=== PATIENT | female | born 1970 | race Caucasian/White ===

== ENCOUNTER 2019-10-28 10:44 | Emergency (ER) | payer OTHER, SELFPAY ==
[2019-10-28 11:00] VITALS: BP 148/90; PULSE 95; RESP 16; TEMP 36.7; O2SAT 98
--- NOTE | 2019-10-28 11:01 | ED.GENADULT ---
HPI - General Adult General Chief complaint: Extremity Injury, Lower Stated complaint: Left hip pain Time Seen by Provider: 10/28/19 11:01 History of Present Illness HPI narrative: 49-year-old female presents with complaints of left lateral hip pain for the past 2 weeks. Ibuprofen every 8 hours for the past 2 days, last this morning at 00:00 with little relief. Taylor says she is unable to take Tylenol due to Fatty liver. No recent injuries. Denies radiation of pain. No numbness or tingling or bleeding. No swelling. No loss of mobility. Exacerbating factor consist of bearing weight to leg. Denies recent travel or long car rides. No history of DVT or PE. Denies fever, chills, headaches, weakness, fatigue, or myalgia. Denies chest pain or dyspnea. Denies cough, rhinorrhea, congestion, sore throat, nausea, vomiting, abdominal pain, and diarrhea. Tolerating po intake well. Denies recent traveling. Denies concerns for COVID-19 or exposures been home since [id number] order except for essential household needs, working, and return home. Some parts of this dictation were generated by voice recognition software and may contain typographical and/or grammatical inaccuracies. Related Data Home Medications Medication Instructions Recorded Confirmed albuterol sulfate INHALATION 07/03/19 metformin 1,000 mg PO BID 07/03/19 07/03/19 Allergies Allergy/AdvReac Type Severity Reaction Status Date / Time hydromorphone Allergy Intermediate Hallucinati Verified 07/03/19 18:06 ng morphine Allergy Intermediate Other Verified 07/03/19 18:06 NSAIDS (Non-Steroidal AdvReac Intermediate Other Verified 07/03/19 18:06 Anti-Inflamma Review of Systems Review of Systems: Narrative: CONSTITUTIONAL: Denies fever, chills, sweats. EYES: Denies visual changes, redness, discharge. ENT: Denies rhinorrhea, congestion, sore throat, otalgia. CARDIOVASCULAR: Denies chest pain, palpitations, edema. RESPIRATORY: Denies dyspnea, wheezing, cough. GASTROINTESTINAL: Denies abdominal pain, nausea, vomiting, diarrhea. GENITOURINARY: Denies dysuria, hematuria, abnormal discharge SKIN: Denies rash or itching. MUSCULOSKELETAL: Denies acute back pain or myalgia. Complains of Left lateral hip pain. NEUROLOGIC: Denies numbness, or focal weakness. PSYCHIATRIC: Denies anxiety or depression. All systems reviewed and are unremarkable except as noted in HPI and below. [facility] Past Medical History Medical History (Updated 10/28/19 @ 11:46 by ESTRELLITA Oh) Asthma delivery delivered Diabetes Hypercholesteremia Hypertension Obese Surgical History Surgical History (Updated 10/28/19 @ 11:24 by ESTRELLITA Oh) H/O section X1 History of cholecystectomy History of hysterectomy Family History Family History (Updated 10/28/19 @ 11:25 by ESTRELLITA Oh) Father Diabetes mellitus Mother , Unknown type per [facility] Social History Social History (Updated 10/28/19 @ 11:25 by ESTRELLITA Oh) Smoking status: Never smoker Second hand tobacco smoke exposure: No Alcohol intake: never Substance use: never Living arrangements: with family Occupation/Education: occupation Gender identity (if verbalized by the patient): Female Comments At time of signature, agree with nurse past medical, surgical, social, and family history. There is no relevant family history pertinent to the presenting complaint. Exam Narrative: Exam Narrative: GENERAL: This is a well-nourished, well-developed patient, in no apparent distress. Talks in full sentences without deficits and ambulates with LT antalgic gait without dyspnea. HEAD: normocephalic, atraumatic. EYES: PERRL. Sclera clear/white. Vision is grossly intact. CARDIOVASCULAR: Regular rate and rhythm without murmurs, gallops, or rubs. RESPIRATORY: Clear to auscultation. Breath sounds equal bilaterally. No wheezes, rales, or
[2019-10-28] MEDS: KETOROLAC (*BKC) 60 MG/2 ML VIAL IM (11:23)
== END 2019-10-28 11:53 | disposition home or self-care (01) ==
PROVIDERS: Emergency Provider Nurse Practitioner Family; PCP Family Medicine
DX: J45.909 Unspecified asthma, uncomplicated (principal); E11.9 Type 2 diabetes mellitus without complications; E78.00 Pure hypercholesterolemia, unspecified; I10 Essential (primary) hypertension; K76.0 Fatty (change of) liver, not elsewhere classified; E66.9 Obesity, unspecified; Z68.43 Body mass index [BMI] 50.0-59.9, adult; Z79.84 Long term (current) use of oral hypoglycemic drugs; M25.552 Pain in left hip
CPT/HCPCS: 96372; 99213; G0463; J1885

== ENCOUNTER 2020-06-03 12:05 | Emergency (ER) | payer OTHER, SELFPAY ==
[2020-06-03 12:18] VITALS: BP 147/74; PULSE 85; RESP 16; TEMP 36.8; O2SAT 99
--- NOTE | 2020-06-03 12:34 | ED.UPPEXIN ---
HPI - Extremity Injury (Upper) General Chief Complaint: Extremity Injury, Upper Stated Complaint: right wrist pain Source: patient Mode of arrival: ambulatory Limitations: no limitations History of Present Illness HPI narrative: This is a 49-year-old [place] lady that presented to urgent care today with complaints of right wrist pain. 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 Patient notes that she feels pain when she flexes her wrist towards herself. She has not taken anything to relieve her pain she noted that she will hold go to [facility] to get a wrist splint. She noted that with movement her pain worsens. She does not have any neurovascular deficiencies she has full range of motion's with pain, patient able to move digits , pulses are palpable ,wrist tender to palpation no edema or erythema noted. Hand strength equal bilateral. The patient denies SOB, CP, palpitation, extremity numbness, lightheadedness, dizziness, constipation, diarrhea, chills, or fever. MD complaint: injury to: left and right Related Data Home Medications Medication Instructions Recorded Confirmed albuterol sulfate 90 mcg INHALATION PRN PRN 07/03/19 06/03/20 metformin 1,000 mg PO BID 07/03/19 06/03/20 empagliflozin [Jardiance] 25 mg PO DAILY 06/03/20 06/03/20 ergocalciferol (vitamin D2) 1,250 mcg PO WEEKLY 06/03/20 06/03/20 lancets [OneTouch Delica Plus 06/03/20 06/03/20 Lancet] lisinopril 2.5 mg PO DAILY 06/03/20 06/03/20 sertraline 25 mg PO DAILY 06/03/20 06/03/20 sitagliptin [Januvia] 100 mg PO DAILY 06/03/20 06/03/20 Allergies Allergy/AdvReac Type Severity Reaction Status Date / Time hydromorphone Allergy Intermediate Hallucinati Verified 06/03/20 12:23 ng morphine Allergy Intermediate Other Verified 06/03/20 12:23 NSAIDS (Non-Steroidal AdvReac Intermediate Other Verified 06/03/20 12:23 Anti-Inflamma Review of Systems Review of Systems: All systems reviewed & are unremarkable except as noted in HPI and below (10 point system review) [facility] Past Medical History Medical History (Updated 12/10/20 @ 12:27 by DAE Rios) Asthma delivery delivered Diabetes Hypercholesteremia Hypertension Obese Surgical History Surgical History (Updated 10/28/19 @ 11:24 by ESTRELLITA Oh) H/O section X1 History of cholecystectomy History of hysterectomy Family History Family History (Updated 10/28/19 @ 11:25 by ESTRELLITA Oh) Father Diabetes mellitus Mother , Unknown type per [facility] Cancer Social History Social History (Updated 10/28/19 @ 11:25 by ESTRELLITA Oh) Smoking status: Never smoker Second hand tobacco smoke exposure: No Alcohol intake: never Substance use: never Gender identity (if verbalized by the patient): Female Exam Narrative: Exam Narrative: GENERAL: This is a well-nourished, well-developed patient, in no apparent distress. HEAD: normocephalic, atraumatic. EYES: PERRL. Sclera clear/white. Vision is grossly intact. EARS: External ears normal, auditory canals clear and without drainage, TMs normal without perforation. Hearing grossly intact. NOSE: External nose normal with no obvious nasal discharge, nares without redness, no rhinorrhea. THROAT: Mucous membranes moist, posterior pharynx clear. NECK: Neck supple, non-tender without lymphadenopathy, masses or thyromegaly. CARDIOVASCULAR: Regular rate and rhythm without murmurs, gallops, or rubs. RESPIRATORY: Clear to auscultation. Breath sounds equal bilaterally. No wheezes, rales, or rhonchi. GASTROINTESTINAL: Abdomen soft, non-tender, nondistended. Bowel sounds are active. No hepato-splenomegaly, or palpable masses. No guarding. SKIN: warm, intact with no suspicious lesions or rash, good texture and turgor. NEURO: awake, alert, and oriented to person, place and time. There were no obv
== END 2020-06-03 12:38 | disposition home or self-care (01) ==
PROVIDERS: Emergency Provider Nurse Practitioner; PCP Family Medicine
DX: S63.501A Unspecified sprain of right wrist, initial encounter (principal); S66.911A Strain of unspecified muscle, fascia and tendon at wrist and hand level, right hand, initial encounter; X50.9XXA Other and unspecified overexertion or strenuous movements or postures, initial encounter; E11.9 Type 2 diabetes mellitus without complications; E78.00 Pure hypercholesterolemia, unspecified; I10 Essential (primary) hypertension; E66.9 Obesity, unspecified; Z68.43 Body mass index [BMI] 50.0-59.9, adult
CPT/HCPCS: 99213; G0463

== ENCOUNTER 2020-12-03 14:39 | Outpatient (CLI) | payer OTHER, SELFPAY ==
--- NOTE | 2020-12-03 16:11 | PCRCNOTE ---
AFTER PFT TESTING PATIENT C/O LIGHTHEADEDNESS, WE STOPPED IN WAITING ROOM TO SIT, CHECKED BP 123/94 HR 115, SPO2 100 % ON ROOM AIR. WHILE SPEAKING WITH PATIENT SHE BRIEFLY LOST CONSCIOUSNESS. CALLED A RAPID RESPONSE, PATIENT WENT TO ER WITH RAPID RESPONSE TEAM.
[2020-12-03 16:22] VITALS: BP 123/94; PULSE 111; RESP 24; O2SAT 100
--- NOTE | 2020-12-13 16:52 | WPDSIXMINUTE ---
Six Minute Walk Procedure Procedure Performed Pulmonary Stress Test (6 min walk) Six Minute Walk This is a 6 minutes walk test. The test was performed and interpreted in accordance with the 2014 ERS/ATS task force guidelines. Findings: The patient's resting room air oxygen saturation measured by pulse oximetry was 96% and her heart rate was 116 bpm. Patient ambulated for 366 meters and oxygen saturation remained 95 to 97%. Heart rate at the end of the study was 114 bpm. The patient did not qualify for supplemental oxygen at rest or with ambulation. There are no prior studies for comparison.
--- NOTE | 2020-12-13 16:53 | P.PCNPFT_ITS ---
PFT Procedure Performed PFT Procedure Performed Spirometry with Pre/Post Bronchodilator Plethysmography (Lung Vol) Diffusing Cap (DLCO) Flow Vol Loop PFT Interpretation This is a pulmonary function test with pre and post-bronchodilator spirometry, plethysmography and diffusing capacity. The test was performed and results interpreted in accordance with the 2019 and 2005 ATS/ERS Task Force guidelines respectively using the Global Lung Function Initiative-2012 reference equations. Patient demonstrated good effort and cooperation. Reproducibility criteria were met. The quality of the pre bronchodilator spirometry maneuver was Grade A and post bronchodilator spirometry maneuver was Grade A. Of note, after the testing the patient began to feel lightheaded, she stopped in the waiting room to sit and her vitals were checked with a blood pressure 123/94, heart rate 115, SpO2 was 100% on room air. While the service center technician was speaking with the patient the patient briefly lost consciousness and a rapid response was called. Patient went to the emergency department with the rapid response team. Findings: Spirometry: The contour the inspiratory and expiratory flow tracing are normal. The pre bronchodilator FVC is 2.88 L, 103% predicted. The pre bronchodilator FEV1 is 2.36 L, 102% predicted. The FEV1: FVC ratio was 82%. The post bronchodilator FVC is 2.78 L, representing a 3% decrease. The post bronchodilator FEV1 is 2.33 L, representing a 2% decrease. Plethysmography: The total lung capacity is 4.16 L, 88% predicted. The functional residual capacity is 1.93 L, 74% predicted. The residual volume is 1.06 L, 65% predicted. Diffusing capacity: The absolute diffusion capacity is 18.7, 84% predicted. The diffusing capacity corrected for alveolar volume is 5.05, 107% predicted. Impression: The spirometry is normal without evidence of an obstructive abnormality. There is no significant improvement after inhaling a single dose of albuterol. The lung volumes are normal. The diffusing capacity is normal. There are no prior studies for comparison
== END 2020-12-03 14:40 | disposition home or self-care (01) ==
PROVIDERS: PCP Family Medicine; Visit Provider Nurse Practitioner
DX: J45.909 Unspecified asthma, uncomplicated (principal); R55 Syncope and collapse
CPT/HCPCS: 94060; 94618; 94726; 94729

== ENCOUNTER 2020-12-03 15:57 | Emergency (ER) | payer OTHER, SELFPAY ==
[2020-12-03] VITALS (9 sets, daily range): BP systolic 107–147; BP diastolic 93–105; PULSE 87–103; RESP 10–21; TEMP 36.8; O2SAT 91–100
--- NOTE | ~2020-12-03 | XR_ITS ---
EXAMINATION: XR chest 2V DATE: 12/03/2020 16:31 INDICATION: Chest pain and shortness of breath. TECHNIQUE: Frontal and lateral views of the chest were obtained. COMPARISON: None. FINDINGS: The chest demonstrates clear lungs without pneumonia, pleural effusion, or pneumothorax. Th e heart size is normal. There are surgical clips in the abdomen. IMPRESSION: 1. No acute cardiopulmonary disease. Reviewed, dictated and finalized at location A.
--- NOTE | 2020-12-03 16:01 | ECG_ITS ---
Measurements Intervals Baggs Rate: 87 P: 53 MT: 128 QRS: 34 QRSD: 101 T: 15 QT: 376 QTc: 453 Interpretive Statements SINUS RHYTHM POSSIBLE LEFT ATRIAL ENLARGEMENT BASELINE ARTIFACT- II, III, AVR, AVF, V2-V6 BORDERLINE ECG Electronically Signed On 12-03-2020 20:28:41 CDT by Rory Dean D.O.
[2020-12-03 16:07] LABS: Glucose Point of Care 336 mg/dl (65-105)
[2020-12-03 16:14] LABS: Basophils Absolute Auto 0.1 K/mm3 (0.0-0.1); Basophils Percent Auto 0.8 % (0.2-1.2); Eosinophils Absolute Auto 0.2 K/mm3 (0-0.3); Hematocrit 42.7 % (37.0-47.0); Hemoglobin 14.7 g/dL (12.0-15.0); Immature Granulocyte Absolute 0.03 K/mm3 (0.00-0.031); Immature Granulocyte Percent A 0.3 % (0-0.5); Lymphocytes Absolute Auto 3.02 K/mm3 (0.9-3.2); Mean Corpuscular HGB Conc 34.4 g/dl (32-36); Mean Corpuscular Volume 84.2 fl (80-100); Mean Platelet Volume 12.6 fl (7.4-10.4); Monocytes Absolute Auto 0.5 K/mm3 (0.1-0.6); Monocytes Percent Auto 6.1 % (2.6-8.5); Neutrophils Percent Auto 56.8 % (45.5-73.1); Platelet Count Result 342 k/mm3 (150-375); Red Blood Count 5.07 M/mm3 (4.2-5.4); Red Cell Distribution Width 13.1 % (11.5-14.5); White Blood Count 8.9 K/mm3 (4.5-10.0)
[2020-12-03 16:23] LABS: Prothrombin Time 14.1 Seconds (11.1-14.7)
[2020-12-03 16:24] LABS: Anion Gap 11 mmol/L (8-16); Blood Urea Nitrogen 13 mg/dL (7-17); Calcium 9.9 mg/dL (8.4-10.2); Carbon Dioxide 27 mmol/L (22-30); Chloride 99 mmol/L (98-107); Estimated CRCL calculation 119 ml/min; Estimated Glomerular Filt Rate > 60; Glucose 342 mg/dL (65-105); Partial Thromboplastin Time 24.8 SECONDS (22.3-36.8); Potassium 3.6 mmol/L (3.4-5.0); Sodium 137 mmol/L (137-145)
[2020-12-03 16:35] LABS: Troponin I < 0.012 ng/mL (0.000-0.034)
--- NOTE | 2020-12-03 16:46 | ED.GENADULT ---
HPI - General Adult General Chief complaint: Chest Pain Stated complaint: unk Time Seen by Provider: 12/03/20 16:37 Source: patient and RN notes reviewed Limitations: no limitations History of Present Illness HPI narrative: Patient is 50 years old white female came to the emergency room because of panic attack-like symptoms in the form of lightheadedness, dizziness, may be loss of consciousness fo 3 sec, jittery feeling inside, shaking outside, stomach upset, difficulty breathing and thinking. Patient had COVID-19 infection July 2020, with residual chronic trouble breathing and soreness across the top of the chest. Patient was performing pulmonary function test today and during the test experienced the above symptoms. Patient reported that the chest soreness is not different than before, it is chronic after Covid infection. Patient did not get vaccinated yet. Currently patient feeling back to her normal health status exactly as before the pulmonary function test. History of anxiety and depression on Zoloft, patient believes that she got panicky while doing the pulmonary function test. History of diabetes, hypertension, hyperlipidemia, asthma, depression. Patient doesn't smoke or drink or uses drugs. Patient denies any fever, chills, nausea, vomiting. Per Dr. Lundberg, the pulmonary function test came back within normal limits, patient received bronchodilators and some time with hyperventilation can lead to decrease of the pulmonary blood flow and causing syncope or panic attack. Related Data Home Medications Medication Instructions Recorded Confirmed albuterol sulfate 90 mcg INHALATION PRN PRN 07/03/19 06/03/20 metformin 1,000 mg PO BID 07/03/19 06/03/20 empagliflozin [Jardiance] 25 mg PO DAILY 06/03/20 06/03/20 ergocalciferol (vitamin D2) 1,250 mcg PO WEEKLY 06/03/20 06/03/20 lancets [OneTouch Delica Plus 06/03/20 06/03/20 Lancet] lisinopril 2.5 mg PO DAILY 06/03/20 06/03/20 sertraline 25 mg PO DAILY 06/03/20 06/03/20 sitagliptin [Januvia] 100 mg PO DAILY 06/03/20 06/03/20 Allergies Allergy/AdvReac Type Severity Reaction Status Date / Time hydromorphone Allergy Intermediate Hallucinati Verified 06/03/20 12:23 ng morphine Allergy Intermediate Other Verified 06/03/20 12:23 NSAIDS (Non-Steroidal AdvReac Intermediate Other Verified 06/03/20 12:23 Anti-Inflamma Review of Systems Review of Systems: Narrative: CONSTITUTIONAL: Denies fever, chills, or sweats. EYES: Denies visual changes, redness, or discharge. ENT: Denies rhinorrhea, congestion, sore throat, or otalgia. CARDIOVASCULAR: Denies chest pain, palpitations, or edema. RESPIRATORY: Denies cough or dyspnea. GASTROINTESTINAL: Denies abdominal pain, nausea, vomiting, or diarrhea. GENITOURINARY: Denies dysuria or hematuria. SKIN: Denies rash or itching. MUSCULOSKELETAL: Denies back pain, joint pain, or myalgia. NEUROLOGIC: Denies headache, numbness, or weakness. PSYCHIATRIC: Denies anxiety or depression. PMFSH Past Medical History Medical History Asthma delivery delivered Diabetes Hypercholesteremia Hypertension Obese Surgical History Surgical History H/O section X1 History of cholecystectomy History of hysterectomy Family History Family History Father Diabetes mellitus Mother , Unknown type per [facility] Cancer Social History Social History Smoking status: Never smoker Second hand tobacco smoke exposure: No Alcohol intake: never Substance use: never Gender identity (if verbalized by the patient): Female Exam Narrative: Exam Narrative: General appearance: Well-developed, well-nourished Skin: Normal color Head: Normocephalic, nontraumatic Eyes: Clear conjunctiva ENT: Oropharynx normal, ears normal,
[2020-12-03] MEDS: INSULIN HUMAN REGULAR (*BKC) 100 UNITS/ML 8 UNITS SUB-Q (17:21)
== END 2020-12-03 17:27 | disposition home or self-care (01) ==
PROVIDERS: Emergency Medicine; Emergency Provider Emergency Medicine; PCP Family Medicine
DX: F41.0 Panic disorder [episodic paroxysmal anxiety] (principal); E11.65 Type 2 diabetes mellitus with hyperglycemia; B94.8 Sequelae of other specified infectious and parasitic diseases; R07.9 Chest pain, unspecified; R06.9 Unspecified abnormalities of breathing; F32.9 Major depressive disorder, single episode, unspecified; E78.5 Hyperlipidemia, unspecified; I10 Essential (primary) hypertension; J45.909 Unspecified asthma, uncomplicated; R94.31 Abnormal electrocardiogram [ECG] [EKG]
CPT/HCPCS: 36415; 71046; 80048; 82948; 84484; 85025; 85610; 85730; 93005; 94060; 94618; 94726; 94729; 99284; J1815

== ENCOUNTER 2021-02-11 13:30 | Emergency (ER) | payer OTHER, SELFPAY ==
--- NOTE | ~2021-02-11 | XR_ITS ---
EXAMINATION: XR shoulder RT min 2V DATE: 02/11/2021 14:20 INDICATION: Right shoulder pain. TECHNIQUE: 4 views of right shoulder were obtained. COMPARISON: Right shoulder radiographs 03/27/2016 FINDINGS: Bone alignment is normal. No fracture. Glenohumeral joint is normal. There is mild acromioc lavicular joint osteoarthritis. IMPRESSION: 1. Mild right acromioclavicular joint osteoarthritis. Reviewed, dictated and finalized at location B.
[2021-02-11 13:40] VITALS: BP 146/94; PULSE 79; RESP 18; TEMP 36.3; O2SAT 100
[2021-02-11 13:41] VITALS: BP 146/94; PULSE 79; RESP 18; TEMP 36.3; O2SAT 100
--- NOTE | 2021-02-11 14:00 | ED.UPPEXIN ---
HPI - Extremity Injury (Upper) General Chief Complaint: Extremity Injury, Upper Stated Complaint: RIGHT SHOULDER PAIN Time Seen by Provider: 02/11/21 14:00 Source: patient and RN notes reviewed Mode of arrival: ambulatory Limitations: no limitations History of Present Illness HPI narrative: 50-year-old female presents to the [facility] with complaints of right shoulder discomfort worse with movement. 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 Related Data Home Medications Medication Instructions Recorded Confirmed albuterol sulfate 90 mcg INHALATION PRN PRN 07/03/19 06/03/20 metformin 1,000 mg PO BID 07/03/19 06/03/20 empagliflozin [Jardiance] 25 mg PO DAILY 06/03/20 06/03/20 ergocalciferol (vitamin D2) 1,250 mcg PO WEEKLY 06/03/20 06/03/20 lancets [OneTouch Delica Plus 06/03/20 06/03/20 Lancet] lisinopril 2.5 mg PO DAILY 06/03/20 06/03/20 sertraline 25 mg PO DAILY 06/03/20 06/03/20 sitagliptin [Januvia] 100 mg PO DAILY 06/03/20 06/03/20 Acid Reflux 02/11/21 fluticasone propionate [Flovent INHALATION 02/11/21 HFA] glimepiride mg 02/11/21 Allergies Allergy/AdvReac Type Severity Reaction Status Date / Time hydromorphone Allergy Intermediate Hallucinati Verified 06/03/20 12:23 ng morphine Allergy Intermediate Other Verified 06/03/20 12:23 NSAIDS (Non-Steroidal AdvReac Intermediate Other Verified 06/03/20 12:23 Anti-Inflamma Review of Systems Review of Systems: All systems reviewed & are unremarkable except as noted in HPI and below Constitutional: Constitutional: Reports no additional constitutional complaints, Denies chills and Denies fever(s) Eyes: Eyes: Reports no additional eye complaints ENT: Reports system reviewed and no additional complaints, except as documented Cardiovascular: Cardiovascular: Reports no additional cardiovascular complaints and Denies chest pain Respiratory: Respiratory: Reports no additional respiratory complaints, Denies cough and Denies dyspnea Gastrointestinal: Gastrointestinal: Reports no additional gastrointestinal complaints Musculoskeletal: Musculoskeletal: Reports as per HPI, Reports arthralgias (Right shoulder) and Denies joint swelling Integumentary/Breasts: Skin/Breast: Reports system reviewed and no additional complaints, except as docu, Denies erythema and Denies rash Neurologic: Reports system reviewed and no additional complaints, except as documented, Denies confusion, Denies vertigo, Denies dizziness, Denies focal weakness, Denies numbness and Denies weakness Psychiatric: Psychiatric: Reports no additional psychiatric complaints Allergic/Immunologic: Allergic/Immunologic: Reports no additional allergic/immunologic complaints PMFSH Past Medical History Medical History Asthma delivery delivered Diabetes Hypercholesteremia Hypertension Obese Surgical History Surgical History H/O section X1 History of cholecystectomy History of hysterectomy Family History Family History Father Diabetes mellitus Mother , Unknown type per [facility] Cancer Social History Social History Smoking status: Never smoker Second hand tobacco smoke exposure: No Alcohol intake: never Substance use: never Gender identity (if verbalized by the patient): Female Comments At the time of my signature, I reviewed and agree with the nursing past medical, surgical, social, and family history. There is no relevant family history pertinent to the patient complaint. Exam Const: General: healthy appearing, no acute distress and alert Nutritional Appearance: well nourished and obese Orientation/con
== END 2021-02-11 14:39 | disposition home or self-care (01) ==
PROVIDERS: Emergency Provider Nurse Practitioner; PCP Family Medicine
DX: S46.911A Strain of unspecified muscle, fascia and tendon at shoulder and upper arm level, right arm, initial encounter (principal); X50.3XXA Overexertion from repetitive movements, initial encounter; Y99.0 Civilian activity done for income or pay; J45.909 Unspecified asthma, uncomplicated; E11.9 Type 2 diabetes mellitus without complications; E78.00 Pure hypercholesterolemia, unspecified; I10 Essential (primary) hypertension; E66.9 Obesity, unspecified; Z68.41 Body mass index [BMI] 40.0-44.9, adult
CPT/HCPCS: 73030; 99213; G0463

== ENCOUNTER 2021-06-21 17:45 | Emergency (ER) | payer OTHER, SELFPAY ==
--- NOTE | ~2021-06-21 | XR_ITS ---
EXAMINATION:[id number] DATE: 06/21/2021 18:27 INDICATION: Neck pain TECHNIQUE: AP, lateral, lateral swimmers and odontoid views of the cervical spine are provided. COMPARISON: None FINDINGS: Alignment is normal. The odontoid is intact. No fracture is identified. The vertebral body heights are maintained. There is mild loss of intervertebral disc space height in the lower cervical spine. Prevertebral soft tissues are normal. IMPRESSION: 1. Mild cervical spondylosis without acute findings identified. However, if there is high clinical dexter spicion for cervical spine fracture, CT is recommended. Reviewed, dictated and finalized at location F. [facility] AGENT IMPRESSION: 1. Mild cervical spondylosis without acute findings identified. However, if the re is high clinical suspicion for cervical spine fracture, CT is recommended.
[2021-06-21 18:04] VITALS: BP 146/87; PULSE 81; RESP 16; TEMP 36.9; O2SAT 98
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
== END 2021-06-21 18:50 | disposition home or self-care (01) ==
PROVIDERS: Emergency Provider Nurse Practitioner
DX: S16.1XXA Strain of muscle, fascia and tendon at neck level, initial encounter (principal); V49.9XXA Car occupant (driver) (passenger) injured in unspecified traffic accident, initial encounter; J45.909 Unspecified asthma, uncomplicated; E11.9 Type 2 diabetes mellitus without complications; E78.00 Pure hypercholesterolemia, unspecified; I10 Essential (primary) hypertension; E66.9 Obesity, unspecified; Z68.42 Body mass index [BMI] 45.0-49.9, adult
CPT/HCPCS: 72040; 99213; G0463

== ENCOUNTER 2021-11-30 13:55 | Emergency (ER) | payer OTHER, SELFPAY ==
[2021-11-30 13:57] VITALS: BP 133/94; PULSE 92; RESP 20; TEMP 36.3; O2SAT 100
--- NOTE | 2021-11-30 14:06 | ED.CHESTPAIN ---
HPI - Chest Pain General Chief Complaint: Chest Pain Stated Complaint: cp Time Seen by Provider: 11/30/21 14:15 Source: patient Mode of arrival: ambulatory Limitations: no limitations History of Present Illness HPI narrative: 51-year-old female presented for complaint of left upper chest pain for about 1 hour [employer]. She states she was having [place] food when she developed a sudden onset in the left upper chest, described as a stabbing sensation. She states that radiated to the left lateral chest. Also states that she felt 1 vein in the left forearm felt painful, this is resolved Pain in the chest is now described as a constant dull ache. Denies associated palpitations, nausea, vomiting, dizziness, cough or shortness of breath at this time. 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 Endorses a history of of anxiety, and admits to increased stress for a few months, states this does not feel like a panic attack. She has history of HTN, asthma, fibromyalgia, and diabetes, poorly controlled but is trying to be more compliant, blood sugars in the 220s. Related Data Home Medications Medication Instructions Recorded Confirmed albuterol sulfate 90 mcg/actuation 90 mcg inhalation PRN PRN 07/03/19 11/30/21 aerosol inhaler Shortness Of Breath Or Wheezing metformin 1,000 mg tablet 1,000 mg PO BID 07/03/19 11/30/21 empagliflozin 25 mg tablet 25 mg PO DAILY 06/03/20 11/30/21 (Jardiance) ergocalciferol (vitamin D2) 1,250 1,250 mcg PO WEEKLY 06/03/20 11/30/21 mcg (50,000 unit) capsule lancets 33 gauge (OneTouch Delica 06/03/20 06/03/20 Plus Lancet) lisinopril 2.5 mg tablet 2.5 mg PO DAILY 06/03/20 11/30/21 sertraline 25 mg tablet 25 mg PO DAILY 06/03/20 11/30/21 sitagliptin 100 mg tablet (Januvia) 100 mg PO DAILY 06/03/20 11/30/21 fluticasone propionate 110 2 puff inhalation DAILY 02/11/21 11/30/21 mcg/actuation HFA aerosol inhaler (Flovent HFA) Allergies Allergy/AdvReac Type Severity Reaction Status Date / Time hydromorphone Allergy Intermediate Hallucinati Verified 11/30/21 14:19 ng morphine Allergy Intermediate Other Verified 11/30/21 14:19 NSAIDS (Non-Steroidal AdvReac Intermediate Other Verified 11/30/21 14:19 Anti-Inflamma Review of Systems Review of Systems: CONSTITUTIONAL: Denies body aches, fever, chills, or sweats. ENT: Denies rhinorrhea, congestion, sore throat, or otalgia. CARDIOVASCULAR: Denies palpitations, or edema. RESPIRATORY: Denies cough or dyspnea. GASTROINTESTINAL: Denies abdominal pain, nausea, vomiting, or diarrhea. MUSCULOSKELETAL: Denies back pain, joint pain, or myalgia. NEUROLOGIC: Denies headache, numbness, tingling, or weakness. PSYCH: Reports depression/ anxiety. All systems reviewed & are unremarkable except as noted in HPI and below PMFSH Past Medical History Medical History Asthma delivery delivered Diabetes Hypercholesteremia Hypertension Obese Surgical History Surgical History H/O section X1 History of cholecystectomy History of hysterectomy Family History Family History Father Diabetes mellitus Mother , Unknown type per [facility] Social History Social History Smoking status: Never smoker Second hand tobacco smoke exposure: No Alcohol intake: never Substance use: never Gender identity (if verbalized by the patient): Female Comments At time of signature, I have reviewed and agree with nursing past medical, surgical, social and family history unless otherwise noted. Please see nursing chart for fu
--- NOTE | 2021-11-30 14:10 | ECG_ITS ---
Measurements Intervals [place] Rate: 84 P: 58 [place]: 141 QRS: 52 QRSD: 90 T: 26 QT: 377 QTc: 447 Interpretive Statements SINUS RHYTHM POSSIBLE LEFT ATRIAL ENLARGEMENT [-0.1mV P WAVE IN V1/V2] COMPARED TO ECG 12/03/2020 15:57:41 NO SIGNIFICANT CHANGES Electronically Signed On 12-01-2021 20:31:26 CDT by Lexie Kat M.D.
[2021-11-30] MEDS: MAG HYDROX/AL HYDROX/SIMETH 30 ML UDC PO (14:43)
[2021-11-30 14:48] VITALS: BP 130/78
== END 2021-11-30 15:10 | disposition home or self-care (01) ==
PROVIDERS: Emergency Provider Nurse Practitioner Family; PCP Family Medicine
DX: R07.89 Other chest pain (principal); J45.909 Unspecified asthma, uncomplicated; E11.9 Type 2 diabetes mellitus without complications; E78.00 Pure hypercholesterolemia, unspecified; I10 Essential (primary) hypertension; E66.9 Obesity, unspecified; Z68.42 Body mass index [BMI] 45.0-49.9, adult
CPT/HCPCS: 93005; 99213; A9270; G0463

== ENCOUNTER 2022-10-28 09:08 | Emergency (ER) | payer OTHER, SELFPAY ==
[2022-10-28 09:16] VITALS: BP 142/84; PULSE 70; RESP 16; TEMP 35.8; O2SAT 98
--- NOTE | 2022-10-28 10:01 | ED.URI ---
HPI - URI/Sore Throat General Chief Complaint: Upper Respiratory Infection Stated Complaint: headache, right sinus pressure Time Seen by Provider: 10/28/22 10:05 Source: patient and RN notes reviewed Mode of arrival: ambulatory Limitations: no limitations History of Present Illness HPI Narrative: 52-year-old female with history of diabetes presents with concern for sinus headache, sinus pressure, sinus congestion. Reports symptoms started a little over week ago, has worsened in the last several days. She reports she has been taking Sudafed without relief. MD elicited complaint: rhinorrhea, nasal congestion and sinus pain Related Data Home Medications Medication Instructions Recorded Confirmed albuterol sulfate 90 mcg/actuation 90 mcg inhalation PRN PRN 07/03/19 10/28/22 aerosol inhaler Shortness Of Breath Or Wheezing empagliflozin 25 mg tablet 25 mg PO DAILY 06/03/20 10/28/22 (Jardiance) ergocalciferol (vitamin D2) 1,250 1,250 mcg PO WEEKLY 06/03/20 10/28/22 mcg (50,000 unit) capsule lancets 33 gauge (OneTouch Delica 06/03/20 10/28/22 Plus Lancet) lisinopril 2.5 mg tablet 2.5 mg PO DAILY 06/03/20 10/28/22 sertraline 25 mg tablet 25 mg PO DAILY 06/03/20 10/28/22 sitagliptin phosphate 100 mg 100 mg PO DAILY 06/03/20 10/28/22 tablet (Januvia) fluticasone propionate 110 2 puff inhalation DAILY 02/11/21 10/28/22 mcg/actuation HFA aerosol inhaler (Flovent HFA) Allergies Allergy/AdvReac Type Severity Reaction Status Date / Time hydromorphone Allergy Intermediate Hallucinati Verified 10/28/22 09:37 ng morphine Allergy Intermediate Other Verified 10/28/22 09:37 NSAIDS (Non-Steroidal AdvReac Intermediate Other Verified 10/28/22 09:37 Anti-Inflamma Review of Systems Review of Systems: CONSTITUTIONAL: Reports malaise. Denies chills, sweats, or fever. EYES: Denies visual changes, redness, or discharge. ENT: Reports rhinorrhea, congestion, sinus pain, otalgia CARDIOVASCULAR: Denies chest pain, palpitations, or edema. RESPIRATORY: Denies cough. Denies dyspnea. GASTROINTESTINAL: Denies abdominal pain, nausea, vomiting, diarrhea SKIN: Denies rash or itching. MUSCULOSKELETAL: Reports myalgia. NEUROLOGIC: Reports headache. All systems reviewed & are unremarkable except as noted in HPI and below PMFSH Past Medical History Medical History Asthma delivery delivered Diabetes Hypercholesteremia Hypertension Obese Surgical History Surgical History H/O section X1 History of cholecystectomy History of hysterectomy Family History Family History Father Diabetes mellitus Mother , Unknown type per [facility] Social History Social History Smoking status: Never smoker Second hand tobacco smoke exposure: No Alcohol intake: never Substance use: never Living arrangements: with family Occupation/Education: occupation Gender identity (if verbalized by the patient): Female Comments At time of signature, agree with nursing past medical, surgical, social and family history. There is no relevant family history pertinent to the presenting complaint Exam Narrative: GENERAL: Nontoxic-appearing and in no acute distress. HEAD: Normocephalic EYES: PERRLA, conjunctivae clear ENT: Nares clear, turbinates edematous and erythematous, green discharge. Mucous membranes moist. TM pearly cheney with sharp light reflex bilaterally; no tragal tenderness. Oropharynx not erythematous without lesions. Tonsils not enlarged and without exudate, no drooling, no hoarseness, no trismus, uvula midline. NECK: Supple. No lymphadenopathy CHEST: Clear to auscultation, breath sounds equal. No wheezing, rhonchi, rales, or stridor. No respiratory distress,
== END 2022-10-28 10:19 | disposition home or self-care (01) ==
PROVIDERS: Emergency Provider Nurse Practitioner; PCP Family Medicine
DX: J01.90 Acute sinusitis, unspecified (principal); B96.89 Other specified bacterial agents as the cause of diseases classified elsewhere; I10 Essential (primary) hypertension; E11.9 Type 2 diabetes mellitus without complications
CPT/HCPCS: 99213; G0463

== ENCOUNTER 2023-03-19 18:24 | Emergency (ER) | payer OTHER, SELFPAY ==
--- NOTE | 2023-03-19 19:01 | ED.URI ---
HPI - URI/Sore Throat General Chief Complaint: Upper Respiratory Infection Stated Complaint: headache,cough,hurts to inhale,tired Time Seen by Provider: 03/19/23 19:01 Source: patient Mode of arrival: ambulatory Limitations: no limitations History of Present Illness HPI Narrative: 52-year-old female presents with complaint of headache, fatigue, cough for 2-3 days. Afebrile. Has not taken any [id number] medications to treat her symptoms. Patient reports shortness of breath with exertion, cannot take her normal deep breath. Denies nausea vomiting diarrhea. Reports that symptoms similar to last time she had COVID. All systems reviewed and negative except as noted above. Related Data Home Medications Medication Instructions Recorded Confirmed empagliflozin 25 mg tablet 25 mg PO DAILY 06/03/20 03/19/23 (Jardiance) ergocalciferol (vitamin D2) 1,250 1,250 mcg PO WEEKLY 06/03/20 03/19/23 mcg (50,000 unit) capsule lancets 33 gauge (OneTouch Delica 06/03/20 10/28/22 Plus Lancet) lisinopril 2.5 mg tablet 2.5 mg PO DAILY 06/03/20 03/19/23 sertraline 25 mg tablet 25 mg PO DAILY 06/03/20 03/19/23 sitagliptin phosphate 100 mg 100 mg PO DAILY 06/03/20 03/19/23 tablet (Januvia) fluticasone propionate 110 2 puff inhalation DAILY 02/11/21 03/19/23 mcg/actuation HFA aerosol inhaler (Flovent HFA) Allergies Allergy/AdvReac Type Severity Reaction Status Date / Time hydromorphone Allergy Intermediate Hallucinati Verified 03/19/23 19:19 ng morphine Allergy Intermediate Other Verified 03/19/23 19:19 NSAIDS (Non-Steroidal AdvReac Intermediate Other Verified 03/19/23 19:19 Anti-Inflamma Review of Systems Review of Systems: CONSTITUTIONAL: Denies fever, chills, or sweats. Reports fatigue. EYES: Denies visual changes, redness, or discharge. ENT: Denies rhinorrhea, congestion, sore throat, or otalgia. CARDIOVASCULAR: Denies chest pain, palpitations, or edema. RESPIRATORY: Reports cough and dyspnea with exertion. GASTROINTESTINAL: Denies abdominal pain, nausea, vomiting, or diarrhea. GENITOURINARY: Denies dysuria or hematuria. SKIN: Denies rash or itching. MUSCULOSKELETAL: Denies back pain, joint pain, or myalgia. NEUROLOGIC: reports headache. Denies numbness, or weakness. PSYCHIATRIC: Denies anxiety or depression. All other systems reviewed are negative, except as documented in HPI. [facility] Past Medical History Medical History Asthma delivery delivered Diabetes Hypercholesteremia Hypertension Obese Surgical History Surgical History H/O section X1 History of cholecystectomy History of hysterectomy Family History Family History Father Diabetes mellitus Mother , Unknown type per [facility] Social History Social History Smoking status: Never smoker Second hand tobacco smoke exposure: No Alcohol intake: never Substance use: never Living arrangements: with family Occupation/Education: occupation Gender identity (if verbalized by the patient): Female Comments At time of signature, agree with nursing past medical, surgical, social and family history. There is no relevant family history pertinent to the presenting complaint. Exam Narrative: GENERAL: This is a well-nourished, well-developed patient, in no apparent distress. morbidly obese HEAD: normocephalic, atraumatic. EYES: PERRL. Sclera clear/white. Vision is grossly intact. EARS: External ears normal, auditory canals clear and without drainage, TMs normal without perforation. Hearing grossly intact. NOSE: External nose normal with clear nasal drainage, nares without redness, no rhinorrhea. THROAT: Mucous membranes moist, posterior pharynx clear. NECK: Neck
[2023-03-19 19:09] VITALS: BP 150/103; PULSE 104; RESP 20; TEMP 36.5; O2SAT 98
[2023-03-19 19:11] VITALS: BP 145/111
== END 2023-03-19 19:58 | disposition home or self-care (01) ==
PROVIDERS: Emergency Provider Nurse Practitioner Family; PCP Family Medicine
DX: J06.9 Acute upper respiratory infection, unspecified (principal); I10 Essential (primary) hypertension; J45.909 Unspecified asthma, uncomplicated; E11.9 Type 2 diabetes mellitus without complications; Z79.899 Other long term (current) drug therapy
CPT/HCPCS: 99211; G0463